=== PATIENT | male | born 1990 | race Caucasian/White ===

== ENCOUNTER 2018-08-19 14:33 | Emergency (ER) | payer SELFPAY ==
[~2018-08-19] VITALS: Ht 154.9 cm; Wt 130.6 kg
[2018-08-19 14:37] VITALS: BP_SYST 141
--- NOTE | 2018-08-19 15:45 | NUR ---
BROUGHT BACK TO BED #7 AND REPORT GIVEN TO NURSE
--- NOTE | 2018-08-19 15:50 | NUR ---
Pt AAOx4 presents to ED c/o L lower back pain x 3-4 days; pt believes pain may be r/t work. Pt denies any acute trauma. Pt took motrin with no relief. No other injuries/complaints per pt/noted. Will continue to monitor.
--- NOTE | 2018-08-19 16:02 | NUR ---
ER ARINA Tatum examining patient.
[2018-08-19] MEDS ORDERED: KETOROLAC TROMETHAMINE 60 MG/2 ML VIAL IM ONE (16:30)
--- NOTE | 2018-08-19 16:30 | NUR ---
Toradol 60mg IM to L deltoid administered. Pt tolerated well. No adverse reactions noted.
[2018-08-19 16:48] VITALS: BP_SYST 135
--- NOTE | 2018-08-19 16:48 | NUR ---
Patient given written and verbal discharge instructions and verbalizes understanding. ER ARINA Tatum discussed with patient the results and treatment provided. Patient in stable condition. ID arm band removed. Rx of Soma, Tramadol given. Patient educated on pain management and to follow up with PMD. Pain Scale 2. [employer] Deept[employer] aware. Opportunity for questions provided and answered. Medication side effect fact sheet provided.
== END 2018-08-19 16:48 | disposition home or self-care (01) ==
LOC: SED 14:33
DX: S39.012A Strain of muscle, fascia and tendon of lower back, initial encounter (principal); R03.0 Elevated blood-pressure reading, without diagnosis of hypertension; X50.9XXA Other and unspecified overexertion or strenuous movements or postures, initial encounter; Y93.89 Activity, other specified; Y92.89 Other specified places as the place of occurrence of the external cause; Y99.8 Other external cause status
CPT/HCPCS: 96372; 99283; J1885